=== PATIENT | male | born 1990 | race African-American/Black ===

== ENCOUNTER 2020-05-06 17:42 | Emergency (ER) | payer OTHER ==
[2020-05-06 17:49] VITALS: BP 151/88; PULSE 58; RESP 16; TEMP 97.9
[2020-05-06 18:15] LABS: Appearance,Urine Clear (Clear); Bacteria,Urine Rare /hpf; Bilirubin,Urine Negative (Negative); Blood,Urine Negative (Negative); Color,Urine Yellow; Glucose,Urine (UA) Negative (Negative); Ketones,Urine Negative (Negative); Leukocyte Esterase,Urine Small (Negative); Mucus,Urine Rare /hpf; Nitrite,Urine Negative (Negative); PH, Urine 6.5 (5.0-8.0); Protein,Urine Negative (Negative); RBC,Urine 1 /hpf (0-5); Specific Gravity,Urine 1.023 (1.001-1.035); Urobilinogen,Urine <2.0 mg/dL (<2.0); WBC,Urine 15 /hpf (0-5)
[2020-05-06] MEDS ORDERED: AZITHROMYCIN 250 MG TAB PO STA (18:24)
[2020-05-06] MEDS ORDERED: cefTRIAXone 250 MG VIAL IM STA (18:25)
--- NOTE | 2020-05-06 18:27 | ED ---
Male Urogenital HPI - General Chief complaint: Urogenital Stated complaint: Urogenital Time Seen by Provider: 05/06/20 17:49 Source: patient Mode of arrival: ambulatory Limitations: no limitations - History of Present Illness Initial comments: 29-year-old male presents to emergency with chief complaint of penile discharge. Vision since about one week ago he had unprotected sex a few days agrees noticed some white discharge from his penis. Denies any dysuria, increased urgency or frequency. Denies any lesions, enlarged inguinal lymph nodes, testic ular pain, enlargement or erythema.denies any associated chills. Denies any joint pain or abdominal pain nausea vomiting.denies any rashes on his body. - Related Data Allergies Allergy/AdvReac Type Severity Reaction Status Date / Time No Known Allergies Allergy Verified 05/06/20 17:48 Review of Systems ROS Statement: Those systems with pertinent positive or pertinent negative responses have been documented in the HPI. ROS Other: All systems not noted in ROS Statement are negative. Past Medical History Past Medical History: No Reported History History of Any Multi-Drug Resistant Organisms: None Reported Past Surgical History: No Surgical Hx Reported Smoking Status: Current some day smoker Past Alcohol Use History: Occasional Past Drug Use History: Marijuana General Exam Limitations: no limitations General appearance: alert, in no apparent distress Head exam: Present: atraumatic, normocephalic, normal inspection Eye exam: Present: normal appearance, PERRL, EOMI Pupils: Present: normal accommodation ENT exam: Present: normal exam, normal oropharynx, mucous membranes moist Neck exam: Present: normal inspection, full ROM Respiratory exam: Present: normal lung sounds bilaterally. Absent: respiratory distress Cardiovascular Exam: Present: regular rate, normal rhythm, normal heart sounds GI/Abdominal exam: Present: soft. Absent: distended, guarding exam: Present: circumcision. Absent: normal inspection (White penile discharge), testicular tenderness, urethral discharge, scrotal swelling, vertical testicular lie Extremities exam: Present: normal inspection, full ROM Back exam: Present: normal inspection, full ROM Neurological exam: Present: alert, oriented X3 Psychiatric exam: Present: normal affect, normal mood Skin exam: Present: warm, dry, intact, normal color Course Vital Signs 05/06/20 17:46 Temperature 97.9 F Pulse Rate 58 L Respiratory 16 Rate Blood Pressure 151/88 O2 Sat by Pulse 99 Oximetry Medical Decision Making - Medical Decision Making 29-year-old male presents emergency Department with chief complaint of penile discharge. On physical examination, he does have white discharge from the penis. no other penile lesions or rashes noted. There is no testicular tenderness. patient does have history of STDs. Advised the patient to avoid sex for the next 2 weeks. Advised to notify his sexual partner regarding the testing. Patient was given azithromycin and Rocephin. UA shows some bacteria with 15 white blood cells. Urine culture pending. Gonorrhea chlamydia and Trichomonas name. Patient also advised to go to the health care Department for additional STD testing. Return parameters were thoroughly discussed the patient is understanding and agreeable. Case discussed with[facility]. [facility] - Lab Data Lab Results 05/06/20 Range/Units 18:00 Urine Color Yellow Urine Appearance Clear (Clear) Urine pH 6.5 (5.0-8.0) Ur Specific [place] 1.023 (1.001-1.035) Urine Protein Negative (Negative) Urine Glucose (UA) Negative (Negative) Urine Ketones Negative (Negative) Urine Blood Negative (Negative) Urine Nitrite Negative (Negative) Urine Bilirubin Negative (Negative) Urine Urobilinogen <2.0 (<2.0) mg/dL Ur Leukocyte Esterase Small H (Negative) Urine RBC 1 (0-5) /hpf Urine WBC 15 H (0-5) /hpf Urine Bacteria Rare H (None) /hpf Urine Mucus Rare H (None) /hpf Disposition Clinical Impression: STD exposure, Penile discharge Disposition: HOME SELF-CARE Condition: Stable Instructions (If sedation given, give patient instructions): Sexually Transmitted Diseases (ED) Additional Instructions: you will be notified regarding Trichomonas,gonorrhea and chlamydia results. follow-up with a primary care physician. Return to emergency department if symptoms worsen. Is patient prescribed a controlled substance at d/c from ED?: No Referrals: Nonstaff,Physician [Primary Care Provider] - 1-2 days Time of Disposition: 18:35
[2020-05-07 14:58] LABS: C. trachomatis,PCR Negative (Neg,Equiv); Chlamydia trachomatis Source Urine; N. gonorrhoeae,PCR Negative (Neg,Equiv); Neisseria Source Urine
== END 2020-05-06 18:54 | disposition home or self-care (01) ==
LOC: EC 17:42
DX: R36.9 Urethral discharge, unspecified (principal); Z20.2 Contact with and (suspected) exposure to infections with a predominantly sexual mode of transmission; F17.200 Nicotine dependence, unspecified, uncomplicated
CPT/HCPCS: 81001; 87491; 87591; 87086; 99283; 96372; J0696; 87661